=== PATIENT | male | born 1990 | race Caucasian/White ===

== ENCOUNTER 2021-02-05 17:48 | Emergency (ER) | payer MEDICAID ==
[~2021-02-05] VITALS: Ht 188 cm; Wt 78.9 kg
--- NOTE | 2021-02-05 21:18 | NUR ---
THIS IS A 30M THAT COMES IN WITH A NOTE FROM HIS "CUSTODIAL HOUSE" PT DENIES ALL PSYCH SX AT THIS TIME, DENIES ALL SI/HI. PT AMBULATORY AND COOPERATIVE WITH ALL STAFF, PT IS CONFUSED TO WHY HE HAS GOTTEN THIS NOTE. ERP TO BEDSIDE
[2021-02-05 21:20] VITALS: BP 123/77
--- NOTE | 2021-02-05 22:01 | NUR ---
Patient/Caregiver given discharge instructions and they have confirmed that they understand the instructions. Patient ambulatory with steady gait. NAD, all questions answered appropriately, denies additional needs at this time. No personal belongings left in room after discharge.
== END 2021-02-05 22:07 | disposition home or self-care (01) ==
LOC: ED 22:00
DX: F41.9 Anxiety disorder, unspecified (principal); F31.9 Bipolar disorder, unspecified; F17.210 Nicotine dependence, cigarettes, uncomplicated
CPT/HCPCS: 99281; 99406